=== PATIENT | female | born 1970 | race Caucasian/White ===

== ENCOUNTER 2019-03-27 12:52 | Inpatient (IN) | payer SELFPAY ==
[~2019-03-27] VITALS: Ht 170.2 cm; Wt 98.0 kg
[2019-03-27 12:54] VITALS: Ht 170.2 cm; Wt 98.0 kg
--- NOTE | 2019-03-27 13:00 | NUR ---
NARCAN PUSHED RT 0.5MG AC IV PUSH
--- NOTE | 2019-03-27 13:00 | NUR ---
+GAG REFLEX NOTED.
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
--- NOTE | 2019-03-27 13:00 | NUR ---
PIN POINT PUPILS NOTED. DR. MARINELLI AT BEDSIDE.
--- NOTE | 2019-03-27 13:09 | NUR ---
LAB AT BEDSIDE. RESP AT BEDSIDE FOR ABG.
[2019-03-27 13:41] LABS: BASOPHIL % 0.5 % (0-2); PLATELET COUNT 235 x10^3mcL (130-400)
[2019-03-27 13:42] LABS: CALCIUM 7.8 mg/dL (8.5-10.1); CARBON DIOXIDE 23.6 mmol/L (21-32); CHLORIDE SERUM 108 mmol/L (98-107); CREATININE SERUM 0.9 mg/dL (0.6-1.0); GFR1 > 60 mL/min; GLUCOSE SERUM 90 mg/dL (74-106); POTASSIUM SERUM 3.6 mmol/L (3.5-5.1); SODIUM SERUM 142 mmol/L (136-145)
[2019-03-27 13:47] LABS: RED CELL DISTRIBUTION WIDTH 18.3 % (11.5-14.5)
[2019-03-27 13:55] LABS: ALKALINE PHOSPHATASE 64 U/L (46-116); ALT/SGPT 17 U/L (14-59); AST/SGOT 21 U/L (15-37); BILIRUBIN TOTAL 0.4 mg/dL (0.20-1.00); CHOLESTEROL 150 mg/dL (<200); LIPASE 77 IU/L (73-393); T4(THYROXINE) 7.4 ug/dL (4.7-13.3)
[2019-03-27 13:56] LABS: HDL CHOLESTEROL 65 mg/dL (40-60); TOTAL PROTEIN, SERUM 5.8 g/dL (6.4-8.2)
--- NOTE | 2019-03-27 14:09 | NUR ---
PT IN UPRIGHT POSITION, VSS. BOYFRIEND AT BEDSIDE. WILL CONTINUE TO MONITOR. SPAO2 98%.
--- NOTE | 2019-03-27 14:14 | NUR ---
SPOKE TO [facility] @ POISON CONTROL. RECOMMENDATION: MONITOR VS MONITOR RESPIRATIONS TOX SCREEN AND BASELINE LABS MONITOR 4-6 HRS.
[2019-03-27] MEDS ORDERED: XAN1 PO (14:21)
--- NOTE | 2019-03-27 14:28 | NUR ---
500ML NOTED IN CINTRON BAG, YELLOW/CLEAR.
[2019-03-27 14:30] LABS: microscopic required? YES; urine erythrocyte NEGATIVE (NEGATIVE)
[2019-03-27 14:39] LABS: AMPHETAMINE QUAL UR POSITIVE (See below)
--- NOTE | 2019-03-27 14:39 | NUR ---
RECTAL TEMP 95.1. DR. MARINELLI MADE AWARE. WARM BLANKETS PROVIDED SOCKS PLACED ON PT. VSS. RESP E/U. WILL CONTINUE TO MONITOR.
--- NOTE | 2019-03-27 14:44 | NUR ---
PER DR. MARINELLI CALL RT TO BRING WARM HUMIDIFIED OXYGEN 42 DEGREES. HOUSE SOUP BRINGING FLUID WARMER.
--- NOTE | 2019-03-27 14:51 | NUR ---
LAB AT BEDSIDE FOR BLOOD CULTURE COLLECTION.
--- NOTE | 2019-03-27 15:00 | NUR ---
WARM FLUIDS INITIATED PER VERBAL ORDER DR. MARINELLI.
--- NOTE | 2019-03-27 16:06 | NUR ---
CALLED ICU FOR AVAILABLE BED, PER PO 15 MIN.
--- NOTE | 2019-03-27 16:37 | NUR ---
REPORT GIVEN TO ONEAL PURCELL TO ASSUME CARE OF PT. ONEAL MADE AWARE THAT 1L IS RUNNING AND PER DR. MARINELLI VERBAL ORDER TO NOT GIVE 3L.
[2019-03-27 17:05] VITALS: BP 115/72
--- NOTE | 2019-03-27 19:15 | NUR ---
REPORT RECIEVED FROM BINH KNIGHT. NURSING UPDATES. POC DISCUSSED. SEE SHIFT ASSESSMENT FOR ASSESSMENT.
[2019-03-27 19:28] VITALS: BP 106/72
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
--- NOTE | 2019-03-27 22:00 | NUR ---
ADDITIONAL NOTES-[facility](POISON CONTROL)CALLED TO INQUIRE ABOUT PATIENT CONDITION,UPDATED INCLUDING VITALS AND LABS,HE WANTS TYLENOL AND ASA LEVELS DONE,WILL FOLLOW-UP IN AM.
--- NOTE | 2019-03-27 22:13 | NUR ---
FAMILY @ BEDSIDE DELMA. NURSING UPDATES GIVEN. POC DISCUSSED.
--- NOTE | 2019-03-27 22:20 | NUR ---
FAMILY @ BEDSIDE. NURSING UPDATES. POC DISCUSSED. DELMA STATED THAT HE WAS UNAWARE OF WHAT WAS HAPPENING. STATED HE WOULD TRY TO CALL BACK IN THE MORNING AROUND 10AM.
--- NOTE | 2019-03-27 22:59 | NUR ---
MOHSEN LEFT HIS NUMBER [phone] FOR ANY UPDATES FOR CHANGES FOR THE EVENING STATING HE LIVES RIGHT AROUND THE CORNER AND BE BACK IN THE MORNING.
[2019-03-27 23:06] VITALS: BP 118/80
[2019-03-27 23:20] VITALS: BP 118/80
--- NOTE | 2019-03-28 01:38 | NUR ---
PT RESTING CALMLY IN BED. SLIGHTLY MORE ALERT. PT AROUSAL TO SELF A FEW TIMES W/O ANY STIMULATION. PT UNABLE TO RECALL WHAT HAPPENED. PT ASKED WHERE SHE WAS AND INFORMED.
--- NOTE | 2019-03-28 02:23 | NUR ---
PT RESTING CALMLY IN BED. NO ACUTE CHANGES.
[2019-03-28 03:10] VITALS: BP 132/82
--- NOTE | 2019-03-28 03:27 | NUR ---
PT PLACED ON 1L N/C PER PT ANXIETY AND PER PT PVCS IN ATTEMPT TO HELP OXYGEN LOAD DEMAND ON HEART. PT TOLERATED WELL WILL CONT TO MONITOR.
--- NOTE | 2019-03-28 05:19 | NUR ---
LINENS CHANGED. PT CLEANED. PT SLIGHTLY MORE ALERT @ THIS TIME. PT ABLE TO HOLD A SMALL CONVERSATION BUT STILL DROWSY/LETHARGIC. WILL CONT TO MONITOR.
--- NOTE | 2019-03-28 05:42 | NUR ---
SELAM @ BEDSIDE. DR CALLAWAY @ BEDSIDE. NURSING UPDATES. POC DISCUSSED. NO NEW ORDERS @ THIS TIME.
[2019-03-28 06:02] LABS: BASOPHIL % 0.1 % (0-2); PLATELET COUNT 255 x10^3mcL (130-400)
[2019-03-28 06:03] LABS: RED CELL DISTRIBUTION WIDTH 18.6 % (11.5-14.5)
[2019-03-28 06:13] LABS: CALCIUM 8.4 mg/dL (8.5-10.1); CARBON DIOXIDE 25.9 mmol/L (21-32); CHLORIDE SERUM 108 mmol/L (98-107); CREATININE SERUM 0.9 mg/dL (0.6-1.0); GFR1 > 60 mL/min; GLUCOSE SERUM 83 mg/dL (74-106); MAGNESIUM 2.5 mg/dL (1.8-2.4); PHOSPHOROUS 4.9 mg/dL (2.5-4.9); POTASSIUM SERUM 3.9 mmol/L (3.5-5.1); SODIUM SERUM 142 mmol/L (136-145)
[2019-03-28 07:40] VITALS: BP 140/84
--- NOTE | 2019-03-28 07:40 | NUR ---
THE PATIENT IS SLEEPING BUT AROUSABLE WITH VERBAL STIMULI AND ORIENTED TO PERSON, PLACE AND WITH CLEAR BUT SLOW SPEECH. PATIENT HAS EPISODES OF FORGETFULNESS. PATIENT DENIES ANY PAIN, NAUSEA/VOMITING OR SHORTNESS OF BREATH. IVF NS VIA IV SITE AT [facility]. TELE # 8 READS SINUS RHYTHMS WITH PVCS. CINTRON CATH TO GRAVITY DRAINING YELLOW URINE. CALL LIGHT WITHIN REACH. SIDE RAILS UP X3. BED IS AT LOWEST POSITION. THE FAMILY IS AT BEDSIDE.
--- NOTE | 2019-03-28 09:00 | NUR ---
CINTRON CATH REMOVED ORDERED; 1000 ML OF URINE OUTPUT IN F/C BAG.
--- NOTE | 2019-03-28 10:40 | NUR ---
PATIENT C/O PAIN TO IV SITE AT [facility]; THE IV SITE REMOVED WITH CATH TIP INTACT.
[2019-03-28 11:43] VITALS: BP 117/75
--- NOTE | 2019-03-28 13:58 | NUR ---
DR. VAZQUEZ IS AT BEDSIDE EXAMING THE PATIENT.
--- NOTE | 2019-03-28 14:13 | NUR ---
Discount pharmacy card and list to low cost medical clinics given to patient by Efrain.
[2019-03-28 15:49] VITALS: BP 133/82
--- NOTE | 2019-03-28 16:40 | NUR ---
REPORT WAS GIVEN TO KINDRA BARON NURSE. CONCERNS ADDRESSED. TOD WILL TAKE CARE OF THE PATIENT WHEN PATIENT IS TRANSFERRED TO [facility] UNIT.
--- NOTE | 2019-03-28 16:50 | NUR ---
RECEIVED REPORT FROM BHUPENDRA PURCELL. ALL QUESTIONS ANSWERED AND ADDRESSED. PT WILL BE GOING TO 253-A WITH TELE BOX VIA WHEELCHAIR. ALL BELONGINGS WILL GO WITH PT. FAMILY NOTIFIED. WILL ASSUME CARE OF PT.
--- NOTE | 2019-03-28 17:25 | NUR ---
TRANSFERRED PT TO ROOM 243-A WITH NO COMPLICATIONS. PT'S DINNER TRAY AND BELONGINGS AT BEDSIDE. [facility]
--- NOTE | 2019-03-28 18:17 | NUR ---
PT SLEEPING AT THIS TIME. REMAINS ON ROOM AIR. BREATHING E/U. SYMMETRICAL CHEST WALL EXPANSION NOTED. ON TELE BOX #33. NO S/S OF RESP DISTRESS OR CP AT THIS TIME. PIV TO RAC AND L FA INTACT, PORTS PATENT, DRESSINGS CDI. NS INFUSING @ 100 ML/HR. BED IN LOWEST POSITION, X3 SIDE RAILS UP, CALL LIGHT WITHIN REACH.
--- NOTE | 2019-03-28 19:10 | NUR ---
RECEIVED REPORT FROM TOD PURCELL. WILL RESUME CARE.
--- NOTE | 2019-03-28 19:15 | NUR ---
RECEIVED PT AAOX4. PT ABLE TO FOLLOW COMMANDS AND VERBALIZE NEEDS. PUPILS 3MM BRISK. BREATHING E/U. NO SOB OR RESPIRATORY DISTRESS NOTED. LUNG SOUNDS CTA. ON RA. S1S2 AUSCULTATED WITH NO MURMURS NOTED. PT STATES NO PAIN AT THIS TIME. NSR, TELE #33. PULSES PALPABLE. TRACE EDEMA TO BLE. ABDOMEN SOFT, NONTENDER. BS ACTIVE X4. PT VOIDS FREELT AND STATES NO URINARY COMPLAINTS. SKIN INTACT AND COLOR IS APPROPRIATE FOR RACE. PT ABLE TO AMBULATE WITH STEADY GAIT, NO WEAKNESS NOTED. BED IN LOW POSITION. CALL LIGHT WITHIN REACH. WILL CONTINUE TO MONITOR.
--- NOTE | 2019-03-28 20:20 | NUR ---
PT WANTING TO LEAVE AMA. DR. JACKSON NOTIFIED.
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
--- NOTE | 2019-03-28 20:30 | NUR ---
DR. MCCALLUM AT BEDSIDE TALKING WITH PT WHO IS STILL REFUSING TO SEEK PSYCH EVAL. [employer] CONTACTED TO GIVE CLEARANCE FOR PT TO LEAVE FOR HER SAFETY.
--- NOTE | 2019-03-28 21:25 | NUR ---
PT REFUSED TO WAIT FOR [employer] TO SPEAK WITH HER AT BEDSIDE. PT LEFT AND WENT DOWNSTAIRS TO SMOKE A CIGARETTE. SERGEANT MARTEL MET PT DOWNSTAIRS, TALKED TO PT AND PT BOYFRIEND, WHO EVAULATED PT SAFETY TO LEAVE AMA. PT IS NOT AT RISK TO SELF. DR. MCCALLUM MET PT ALSO AND HAD PT SIGN AMA PAPERS. PT LEFT [facility] ACCOMAPANIED BY BOYFRIEND.
== END 2019-03-28 21:39 | disposition left against medical advice (07) | DRG 917 ==
LOC: ED 12:52 → IC 15:09 → DU 03-28 17:25
PROVIDERS: Emergency Medicine; ADMIT Internal Medicine
DX: T42.4X2A Poisoning by benzodiazepines, intentional self-harm, initial encounter (principal); G92 Toxic encephalopathy; J96.90 Respiratory failure, unspecified, unspecified whether with hypoxia or hypercapnia; J69.0 Pneumonitis due to inhalation of food and vomit; N39.0 Urinary tract infection, site not specified; E87.2 Acidosis; E44.0 Moderate protein-calorie malnutrition; Y92.89 Other specified places as the place of occurrence of the external cause; F32.9 Major depressive disorder, single episode, unspecified; Z90.710 Acquired absence of both cervix and uterus; F15.10 Other stimulant abuse, uncomplicated; R68.0 Hypothermia, not associated with low environmental temperature; E66.9 Obesity, unspecified; Z68.30 Body mass index [BMI] 30.0-30.9, adult; Z71.3 Dietary counseling and surveillance; M32.9 Systemic lupus erythematosus, unspecified; D64.9 Anemia, unspecified; F10.129 Alcohol abuse with intoxication, unspecified; Y90.9 Presence of alcohol in blood, level not specified; F17.200 Nicotine dependence, unspecified, uncomplicated; E83.51 Hypocalcemia; E88.09 Other disorders of plasma-protein metabolism, not elsewhere classified; F41.9 Anxiety disorder, unspecified; Z53.29 Procedure and treatment not carried out because of patient's decision for other reasons; E87.8 Other disorders of electrolyte and fluid balance, not elsewhere classified; E83.41 Hypermagnesemia
CPT/HCPCS: 36600; 82962; G0378; G0480; J2543; J3490; J7030; J7620; Q0092

== ENCOUNTER 2019-11-07 19:29 | Emergency (ER) | payer OTHER ==
[~2019-11-07] VITALS: Ht 175.3 cm; Wt 99.8 kg
[~2019-11-07 19:29] MED LIST: XAN1 PO
[2019-11-07 19:33] VITALS: Ht 175.3 cm; Wt 99.8 kg
[2019-11-07 21:53] VITALS: BP 132/79
== END 2019-11-07 21:53 | disposition home or self-care (01) ==
LOC: ED 19:29
DX: T40.2X1A Poisoning by other opioids, accidental (unintentional), initial encounter (principal); R40.4 Transient alteration of awareness; L93.0 Discoid lupus erythematosus; M79.7 Fibromyalgia; E66.9 Obesity, unspecified; F17.200 Nicotine dependence, unspecified, uncomplicated; Z68.32 Body mass index [BMI] 32.0-32.9, adult; Z90.49 Acquired absence of other specified parts of digestive tract; Z90.89 Acquired absence of other organs; Z98.890 Other specified postprocedural states; Y92.89 Other specified places as the place of occurrence of the external cause
CPT/HCPCS: 99406